=== PATIENT | female | born 1990 | race African-American/Black ===

== ENCOUNTER 2024-12-23 09:49 | Emergency (ER) | payer BC ==
[~2024-12-23] VITALS: Ht 175.3 cm; Wt 81.6 kg
[2024-12-23 10:00] VITALS: BP 109/64; TEMP 98.6
[2024-12-23 11:01] LABS: BASOPHILS % (AUTO) 0.5 % (0.0-2.0); EOSINOPHILS % (AUTO) 0.7 % (0.0-6.0); HEMATOCRIT 40 % (33-45); LYMPHOCYTES # (AUTO) 1.8 K/uL (0.8-4.8); MEAN CORPUSCULAR HEMOGLOBIN 30 PG (26.0-33.0); MEAN CORPUSCULAR HGB CONC 33 g/dl (31.0-36.0); MEAN CORPUSCULAR VOLUME 89 fL (82-100); MONOCYTES # (AUTO) 0.5 K/uL (0.1-1.30); NEUTROPHILS % (AUTO) 55.8 % (43.0-81.0); PLATELET COUNT (AUTO) 172 K/uL (150-450); RED BLOOD CELL COUNT(AUTO) 4.43 MIL/uL (4.0-5.2); RED CELL DISTRIBUTION WIDTH 13.5 % (11.5-15.0); WHITE BLOOD COUNT (AUTO) 5.3 K/uL (4.3-11.0)
[2024-12-23 11:08] LABS: CALCIUM, SERUM 8.6 mg/dL (8.5-10.1); CREATININE 0.8 mg/dL (0.6-1.3); POTASSIUM 4.1 mmol/L (3.5-5.1)
[2024-12-23 11:14] LABS: ALBUMIN 3.8 g/dL (3.4-5.0); BILIRUBIN,TOTAL 0.8 mg/dL (0.2-1.0); TOTAL PROTEIN, SERUM 7.5 g/dL (6.4-8.2)
[2024-12-23 11:36] VITALS: O2SAT 98
== END 2024-12-23 11:36 | disposition home or self-care (01) ==
LOC: ER 09:56
DX: R22.9 Localized swelling, mass and lump, unspecified (principal); M54.50 Low back pain, unspecified; M79.89 Other specified soft tissue disorders; Z60.2 Problems related to living alone
CPT/HCPCS: 36415; 80053-TC; 84703-TC; 85025-TC